=== PATIENT | female | born 1990 | race Caucasian/White ===

== ENCOUNTER 2021-09-25 13:13 | Emergency (ER) | payer OTHER, SELFPAY ==
[2021-09-25 13:30] VITALS: BP 117/74; PULSE 84; RESP 20; TEMP 36.9; O2SAT 98
--- NOTE | 2021-09-25 14:04 | ED.URI ---
HPI - URI/Sore Throat General Chief Complaint: Upper Respiratory Infection Stated Complaint: Loosing Voice Source: patient Mode of arrival: ambulatory Limitations: no limitations History of Present Illness HPI Narrative: Patient is a 31-year-old female who presents with congestion, cough, sore throat, hoarse voice x10+ days. She reports Covid testing times negative. Patient is Covid vaccinated x3. She denies all other complaints at this time. Patient has no significant medical history. Patient reports taking [id number] medications with limited relief. MD elicited complaint: cough and sore throat Related Data Allergies Allergy/AdvReac Type Severity Reaction Status Date / Time Sulfa (Sulfonamide Allergy Unknown Wheezing Verified 09/25/21 14:07 Antibiotics) Review of Systems Review of Systems: CONSTITUTIONAL: Denies fever, chills, or sweats. EYES: Denies visual changes, redness, or discharge. ENT: Reports sore throat, congestion, hoarseness and rhinorrhea CARDIOVASCULAR: Denies chest pain, palpitations, or edema. RESPIRATORY: Reports cough, denies dyspnea. GASTROINTESTINAL: Denies abdominal pain, nausea, vomiting, or diarrhea. GENITOURINARY: Denies dysuria or hematuria. SKIN: Denies rash or itching. MUSCULOSKELETAL: Denies back pain, joint pain, or myalgia. NEUROLOGIC: Denies headache, numbness, dizziness, or weakness. PSYCHIATRIC: Denies anxiety or depression. [facility] Surgical History Surgical History Hx of tonsillectomy Social History Social History (Updated 09/25/21 @ 14:08 by MARYBETH Farah) Smoking status: Never smoker Alcohol intake: never Substance use: never Living arrangements: with family Occupation/Education: occupation Gender identity (if verbalized by the patient): Female Comments At the time of signature, I have reviewed and agree with nursing past medical, surgical, social, and family history unless otherwise noted. Please see nursing chart for further information. There is no relevant family history pertinent to the presenting complaint. Exam Narrative: GENERAL: Well-appearing, well-nourished, and in no acute distress. HEAD: Normocephalic, atraumatic. EYES: EOMI. No redness or drainage. Conjunctiva are normal. ENT: Mucous membranes pink and moist. Nares clear. No rhinorrhea. TMs normal bilaterally. Throat with mild erythema. Uvula midline. NECK: AROM. Supple. No lymphadenopathy. CHEST: No respiratory distress. Clear to auscultation. HEART: Regular rate and rhythm. EXTREMITIES: Normal range of motion. No edema. SKIN: Warm, dry, no rash. NEURO: No focal deficits. Alert and oriented x3. Gait steady. PSYCH: Normal affect. No signs of depression or anxiety. Course Vital Signs Vital signs: Vital Signs Temperature 36.9 C 09/25/21 13:30 Pulse Rate 84 09/25/21 13:30 Respiratory Rate 20 09/25/21 13:30 Blood Pressure 117/74 09/25/21 13:30 Pulse Oximetry 98 09/25/21 13:30 Temperature 36.9 C 09/25/21 13:30 Pulse Rate 84 09/25/21 13:30 Respiratory Rate 20 09/25/21 13:30 Blood Pressure 117/74 09/25/21 13:30 Pulse Oximetry 98 09/25/21 13:30 Reviewed MDM - URI/Sore Throat Differential Diagnosis Differential diagnosis: Likely upper respiratory infection, sinusitis, viral infection, bronchitis, pharyngitis and other (Laryngitis) Critical Care Time Critical Care Time Critical Care Time: No Discharge Plan Discharge Clinical Impression: Upper respiratory infection, Bronchitis, Laryngitis Patient Disposition: Home, Self-Care Condition: Stable Instructions: Acute Bronchitis (ED) Additional Instructions: Take antibiotics as directed. Take prednisone as directed. Follow-up with your PCP in 3 to 5 days if symptoms persist. You may use warm salt water gargles for comfort, Chloraseptic spray and also take Tylenol or ibuprofen as needed. Prescriptions: Jones templer
== END 2021-09-25 14:17 | disposition home or self-care (01) ==
PROVIDERS: Emergency Provider Nurse Practitioner
DX: J06.9 Acute upper respiratory infection, unspecified (principal); J40 Bronchitis, not specified as acute or chronic; J04.0 Acute laryngitis
CPT/HCPCS: 99213; G0463